=== PATIENT | male | born 1995 | race Caucasian/White ===

== ENCOUNTER 2024-08-11 22:41 | Emergency (ER) | payer OTHER ==
[2024-08-11] MEDS: Ketorolac 30 MG/ML SDV IM ONE (23:43)
[2024-08-11 23:47] LABS: HEMATOCRIT 41.2 % (38.3-50.1); HEMOGLOBIN 14.4 g/dL (12.9-17.7); MEAN CORPUSCULAR HEMOGLOBIN 29.6 pg (27.0-33.3); MEAN CORPUSCULAR VOLUME 84.5 fL (80.8-98.7); MEAN PLATELET VOLUME 6.9 fL (6.7-11.0); PLATELET COUNT,PLT 209 x10(3)uL (117-477); RED BLOOD CELL COUNT 4.87 x10(6)uL (3.90-5.90); RED CELL DISTRIBUTION WIDTH 12.8 % (12.4-15.0); WHITE BLOOD CELL COUNT,WBC 13.2 x10-3/uL (3.2-10.1)
[2024-08-11 23:54] LABS: BLOOD UREA NITROGEN,BUN 27 mg/dL (7-18); CALCIUM 8.5 mg/dL (8.6-10.2); CARBON DIOXIDE,CO2 30 mmol/L (21-32); CHLORIDE,CL 101 mmol/L (100-110); CREATININE 1.5 mg/dL (0.70-1.30); EST CRCL DRUG DOSING (CG) 78.09 mL/min; ESTIMATED GFR 65 mL/min (>60); GLUCOSE RANDOM 147 mg/dL (80-116); POTASSIUM,K 3.6 mmol/L (3.5-5.3); SODIUM,NA 137 mmol/L (135-145)
[2024-08-12 00:10] LABS: LYMPHOCYTES PERCENT MAN 5 % (13-37); MONOCYTES PERCENT MAN 4 % (4-12); SEG NEUTROPHILS PERCENT MAN 91 % (46-82)
[2024-08-12 00:20] LABS: BILIRUBIN,URINE NEGATIVE (NEGATIVE); GLUCOSE,URINE NORMAL (NORMAL); KETONES,URINE NEGATIVE (NEGATIVE); LEUKOCYTE ESTERASE,URINE NEGATIVE (NEGATIVE); NITRITE,URINE NEGATIVE (NEGATIVE); OCCULT BLOOD,URINE NEGATIVE (NEGATIVE); PROTEIN,URINE NEGATIVE (NEGATIVE); UROBILINOGEN,URINE NORMAL (NEGATIVE)
[2024-08-12 00:27] LABS: APPEARANCE,URINE CLEAR (CLEAR); COLOR,URINE ORANGE (YELLOW); RBC,URINE 0-5 (0-5); WBC,URINE NOT SEEN (0-5)
[2024-08-12 00:28] LABS: BACTERIA,URINE RARE (NS); SQUAMOUS EPITHELIAL CELLS,UR RARE (NS,R,O)
== END 2024-08-12 00:49 | disposition home or self-care (01) ==
LOC: FB.ED 22:41
DX: M54.50 Low back pain, unspecified (principal); Z79.899 Other long term (current) drug therapy
CPT/HCPCS: 36415; 80048; 81001; 85025; 86140; 96372; 99284; J1885